=== PATIENT | female | born 1990 | race Caucasian/White ===

== ENCOUNTER 2019-08-11 19:11 | Observation (INO) | payer BC, SELFPAY ==
[2019-08-11] VITALS (21 sets, daily range): BP systolic 138–157; BP diastolic 80–102; PULSE 78–97; TEMP 36.6–36.8; O2SAT 97; BMI 26.4
--- NOTE | 2019-08-11 19:11 | OBADM ---
This patient, Carol Simons, admitted to the OB room Labor/Delivery/Recovery 104 for observation. Patient/family oriented to hospital policies and general routines including ID bracelet, bed and alarms, visiting hours, pain management, procedures, bathroom and other care routines, personal items, smoking policy, room service/diet, and visiting hours. Patient/Family are encouraged to report perceived risks to care and to ask questions if they do not understand what they are told or what they should do.
[2019-08-11] MEDS: LABETALOL HCL 100 MG TABLET PO (20:36)
[2019-08-11 20:45] LABS: Basophils Percent Auto 0.2 % (0.2-1.2); Eosinophils Percent Auto 0.5 % (0-4.4); Hematocrit 35.1 % (37.0-47.0); Hemoglobin 12.4 g/dL (12.0-15.0); Immature Granulocyte Absolute 0.02 K/mm3 (0.00-0.031); Immature Granulocyte Percent A 0.2 % (0-0.5); Immature Platelet Fraction Pct 4.7 % (0.9-11.2); Lymphocytes Absolute Auto 1.66 K/mm3 (0.9-3.2); Lymphocytes Percent Auto 19.2 % (18.3-44.2); Mean Corpuscular HGB Conc 35.3 g/dl (32-36); Mean Corpuscular Hemoglobin 31.8 pg (26-34); Monocytes Absolute Auto 0.5 K/mm3 (0.1-0.6); Monocytes Percent Auto 5.5 % (2.6-8.5); Neutrophils Absolute Auto 6.4 K/mm3 (1.3-6.7); Neutrophils Percent Auto 74.4 % (45.5-73.1); Platelet Count Result 119 k/mm3 (150-375); Red Cell Distribution Width 13.4 % (11.5-14.5); White Blood Count 8.7 K/mm3 (4.5-10.0)
[2019-08-11 20:56] LABS: Alanine Aminotransferase 28 U/L (4-35); Albumin Level 3.6 g/dL (3.5-5.1); Alkaline Phosphatase 87 U/L (38-126); Aspartate Amino Transferase 29 U/L (14-36); Bilirubin,Total 0.2 mg/dL (0.2-1.3); Blood Urea Nitrogen 11 mg/dL (7-17); Calcium 8.9 mg/dL (8.4-10.2); Carbon Dioxide 20 mmol/L (22-30); Chloride 106 mmol/L (98-107); Estimated Glomerular Filt Rate > 60; Glucose 83 mg/dL (65-105); Potassium 3.4 mmol/L (3.4-5.0); Sodium 135 mmol/L (137-145); Uric Acid 3.2 mg/dL (2.5-7.5)
[2019-08-11 21:12] LABS: Add Urine Microscopic? YES; Appearance Urine Clear (Clear); Bacteria Urine Trace /hpf; Bilirubin Urine Negative (Negative); Blood Urine Negative (Negative); Color Urine Colorless (Yellow); Glucose Urine UA Negative (Negative); Ketones Urine Trace mg/dL (Negative); Leukocyte Esterase Ur Negative LEU/UL (NEGATIVE); Nitrate Urine Negative (Negative); Protein Urine Negative (Negative); RBC Urine 0-2 /hpf (0-2); Specific Grav Ur 1.004 (1.001-1.035); Squamous Epithelial Cell Urine Rare /hpf (Few); Urobilinogen Urine Negative mg/dL (<2.0); WBC Urine 0-3 /hpf (0-3)
[2019-08-11 21:13] LABS: Creatinine Urine 10.4 mg/dL; Total Protein Urine Random 13 mg/dL
[2019-08-11] MEDS: NIFEdipine 30 MG TAB.ER.24 PO (22:23)
[2019-08-12] VITALS (19 sets, daily range): BP systolic 119–144; BP diastolic 66–95; PULSE 78–106; TEMP 36.6–37.1; O2SAT 99
--- NOTE | 2019-08-12 20:55 | PC.NURSE ---
Discharge medications reviewed with patient. Patient educated on changed labetalol schedule and dose. Patient states understanding. 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
[2019-08-12] MEDS: LABETALOL HCL 100 MG TABLET 200 MG PO (20:56)
--- NOTE | 2019-08-12 21:02 | PC.NURSE ---
Patient up to restroom for final void of 24 hour urine collection.
[2019-08-12 21:32] LABS: Collection Time Urine 24 HOURS
[2019-08-12 21:45] LABS: Creatinine Urine 35.2 mg/dL; Patient Weight 154 Lbs
[2019-08-12 21:49] LABS: Specific Gravity Ur 1.008
[2019-08-12 21:50] LABS: Creatinine Clearance Urine 213.3 ml/min (75-125); Total Volume 24 Hour Urine 4400 ml
--- NOTE | 2019-08-13 08:13 | PM.OBTRLD ---
OB - Triage/Final Diagnosis Visit Information Date of evaluation: 08/12/19 Comments/Additional reasons for admission: 28 y/o @ 37 weeks presented with leaking fluid. Rom plus and pelvic exam negative for amniotic fluid. Chtn with elevated blood pressure. Patient observed for 24 hour urine. Patient denies headache, vision changes, or increased swelling. Patient reports movermnt PMSH: chtn, x1 Medications: Labetalol 200 mg po x1 i Evaluation Laboratory results: Laboratory Tests 08/11/19 08/11/19 08/11/19 20:35 20:35 20:59 WBC 8.7 RBC 3.90 L Hgb 12.4 Hct 35.1 L MCV 90.0 MCH 31.8 MCHC 35.3 RDW 13.4 Plt Count 119 L MPV 11.0 H Immature Gran % (Auto) 0.2 Neut % (Auto) 74.4 H Lymph % (Auto) 19.2 [place] % (Auto) 5.5 Eos % (Auto) 0.5 Baso % (Auto) 0.2 Lymph # (Auto) 1.66 [place] # (Auto) 0.5 Eos # (Auto) 0.0 Baso # (Auto) 0.0 Abs Immat Gran (auto) 0.02 Absolute Neuts (auto) 6.4 Absolute Nucleated RBC 0.0 Nucleated RBC % 0.0 % Immature Plt Fraction 4.7 Sodium 135 L Potassium 3.4 Chloride 106 Carbon Dioxide 20 L BUN 11 Creatinine 0.50 L Estim Creat Clear Calc Not Reportable Estimated GFR > 60 Glucose 83 Uric Acid 3.2 Calcium 8.9 Total Bilirubin 0.2 AST 29 ALT 28 Alkaline Phosphatase 87 Total Protein 7.0 Albumin 3.6 Urine Color Colorless Urine Appearance Clear Urine pH 7.0 Ur Specific [place] 1.004 Urine Protein Negative Urine Glucose (UA) Negative Urine Ketones Trace Ur Blood (Man) Negative Urine Nitrate Negative Urine Bilirubin Negative Urine Urobilinogen Negative Ur Leukocyte Esterase Negative Urine RBC 0-2 Urine WBC 0-3 Ur Squamous Epith Cells Rare Urine Bacteria Trace U Random Total Protein Ur 24 Hour Volume Urine Creatinine Creatinine Clearance 08/11/19 08/11/19 20:59 21:21 WBC RBC Hgb Hct MCV MCH MCHC RDW Plt Count MPV Immature Gran % (Auto) Neut % (Auto) Lymph % (Auto) [place] % (Auto) Eos % (Auto) Baso % (Auto) Lymph # (Auto) [place] # (Auto) Eos # (Auto) Baso # (Auto) Abs Immat Gran (auto) Absolute Neuts (auto) Absolute Nucleated RBC Nucleated RBC % % Immature Plt Fraction Sodium Potassium Chloride Carbon Dioxide BUN Creatinine Estim Creat Clear Calc Estimated GFR Glucose Uric Acid Calcium Total Bilirubin AST ALT Alkaline Phosphatase Total Protein Albumin Urine Color Urine Appearance Urine pH Ur Specific [place] Urine Protein Urine Glucose (UA) Urine Ketones Ur Blood (Man) Urine Nitrate Urine Bilirubin Urine Urobilinogen Ur Leukocyte Esterase Urine RBC Urine WBC Ur Squamous Epith Cells Urine Bacteria U Random Total Protein 13 Ur 24 Hour Volume 4400 Urine Creatinine 10.4 35.2 Creatinine Clearance 213.3 H Vital signs: Vital Signs - 24 hr 08/12/19 09:03 08/12/19 10:46 08/12/19 12:46 Temperature Pulse Rate 106 H 83 84 Blood Pressure 144/95 H 121/69 128/83 Blood Pressure [Right Arm] 08/12/19 15:01 08/12/19 17:01 08/12/19 20:15 Temperature 36.6 C Pulse Rate 99 99 Blood Pressure 139/72 135/86 Blood Pressure [Right Arm] 08/12/19 20:16 08/12/19 20:55 08/12/19 20:56 Temperature 36.9 C Pulse Rate 98 93 95 Blood Pressure 138/85 135/81 Blood Pressure [Right Arm] 135/81 Final Diagnosis (1) Chronic hypertension affecting : Code(s): O10.919 - Unspecified pre-existing hypertension complicating , unspecified trimester Status: Acute Plan: Collect 24 hour urine and monitor BPS d/c after urine done,. Labetalol 200 mg po BID fetus reactive.
[2019-08-13 09:13] LABS: Total Protein Urine 24 Hr 308 mg/24hr (0-149); Total Protein Urine Random < 7.0 mg/dL (0.0-11.9)
== END 2019-08-12 21:23 | disposition home or self-care (01) ==
LOC: ANHLDR 21:48 → ANHOBPP 08-12 17:56 → ANHLDR 08-14 13:01 → ANHOBPP 08-14 13:01
PROVIDERS: Admitting Provider Obstetrics & Gynecology; PCP Internal Medicine; Visit Provider Obstetrics & Gynecology
DX: O10.913 Unspecified pre-existing hypertension complicating pregnancy, third trimester (principal); Z3A.37 37 weeks gestation of pregnancy
CPT/HCPCS: 36415; 59025; 80053; 81001; 81050; 82570; 82575; 84156; 84550; 85025; 85055; 87086; A9270; G0378; G0379

== ENCOUNTER 2019-08-13 16:21 | Inpatient (IN) | payer BC, SELFPAY ==
[2019-08-12 12:30] VITALS: BMI 26.9
[2019-08-13] VITALS (78 sets, daily range): BP systolic 91–153; BP diastolic 51–118; PULSE 74–138; TEMP 36.2–37.4; O2SAT 97–100
--- NOTE | 2019-08-13 16:48 | P.PNAN_ITS ---
Anes - Initial Pre Proc Eval Procedure: labor epidural Date/Time: 08/13/19 16:48 Surgeon: Deneen cOhoa MD Pre Op Diagnosis: labor pain Pre Op Diagnosis: Induction of Labor Patient Data Age: 28 Gender: F Height: Weight: Allergies Allergy/AdvReac Type Severity Reaction Status Date / Time No Known Allergies Allergy Unverified 03/03/17 15:43 Home Medications Medication Instructions Recorded Confirmed Type Zatean-Pn DHA 1 cap PO DAILY 08/10/19 08/11/19 History aspirin 81 mg PO DAILY 08/10/19 08/11/19 History ergocalciferol (vitamin D2) 1,250 mcg PO WEEKLY 08/10/19 08/11/19 History [Vitamin D2] labetalol 200 mg PO Q12HR #28 tablet 08/12/19 Rx Patient hx anesthesia problems: none Family hx anesthesia problems: none [facility] Past Medical History Medical History Chronic hypertension affecting Family History Family History Other No pertinent family history Social History Social History Substance use: never Gender identity (if verbalized by the patient): Female Spiritual care concerns: No Anes - Eval Final PreProcedure Day of Procedure 08/13/19 16:48 Patient weight: normal Heart: regular rate and rhythm Lungs: clear to auscultation and normal air movement Airway: Mallampati scale class 1 Neurological: alert and oriented ASA classification: III Anesthetic plan: proceed Anesthesia type and monitoring: regional epidural and standard monitoring Informed Consent: The patient's anesthetic plan and its attendant risks and benefits were discussed with the patient/family/POA. Questions were solicited and answers provided to the satisfaction of the patient/family/POA.
[2019-08-13 17:24] LABS: Basophils Percent Auto 0.1 % (0.2-1.2); Eosinophils Percent Auto 0.4 % (0-4.4); Hematocrit 35.4 % (37.0-47.0); Hemoglobin 12.5 g/dL (12.0-15.0); Immature Granulocyte Absolute 0.04 K/mm3 (0.00-0.031); Immature Granulocyte Percent A 0.5 % (0-0.5); Immature Platelet Fraction Pct 4.8 % (0.9-11.2); Lymphocytes Absolute Auto 1.51 K/mm3 (0.9-3.2); Lymphocytes Percent Auto 17.9 % (18.3-44.2); Mean Corpuscular HGB Conc 35.3 g/dl (32-36); Mean Corpuscular Hemoglobin 31.8 pg (26-34); Mean Corpuscular Volume 90.1 fl (80-100); Mean Platelet Volume 11.1 fl (7.4-10.4); Monocytes Absolute Auto 0.5 K/mm3 (0.1-0.6); Monocytes Percent Auto 6.3 % (2.6-8.5); Neutrophils Absolute Auto 6.3 K/mm3 (1.3-6.7); Neutrophils Percent Auto 74.8 % (45.5-73.1); Platelet Count Result 127 k/mm3 (150-375); Red Blood Count 3.93 M/mm3 (4.2-5.4); Red Cell Distribution Width 13.4 % (11.5-14.5); White Blood Count 8.4 K/mm3 (4.5-10.0)
--- NOTE | 2019-08-13 17:34 | WPDOBADMIT ---
Obstetrics - Admit Note Admission Note: record reviewed. No pertinent additions to the history and/or any subsequent changes in the physical findings that are not consistent with the expected course of the were found. Additions to the history and/or subsequent changes in the physical findings follow. Here at 37 3/7 wks with CHTN and now superimposed preeclampsia for MIL. Cervix 3-4/50/-2 AROM with clear fluid. FHTs reactive.
[2019-08-13] MEDS: LACTATED RINGERS 1,000 ML 125 ML IV CONT ×2 (17:41→19:00)
[2019-08-13] MEDS: OXYTOCIN 30 UNITS/NS 500 ML 30 UNITS/500 ML BAG IV CONT (17:42)
--- NOTE | 2019-08-13 20:51 | PM.OBPRVD ---
OB - Delivery Note Procedure Delivery date: 08/13/19 Procedure: events: Pre-Eclampsia Intrapartal events: None Induction method: AROM and per pitocin protocol Delivery monitor: external FHT and external uterine Route of delivery: Laceration description: Perineal - 1st Degree Specimen: Yes (placenta) Estimated blood loss (mL): 100 Anesthesia type: Epidural Disposition: floor Baby Weeks of gestation at delivery: 37 gender: Male Weight (pounds): 6 Weight (ounces): 9 presentation: vertex Placenta delivery description: Spontaneous cord vessel description: 3 Vessels score one minute: 9 score five minutes: 9
--- NOTE | 2019-08-13 20:53 | PM.OBDSVD ---
DS: Admitting Diagnosis Admitting Diagnosis Admitting Diagnosis: IUP 37 2/7 wks; CHTN with superimposed preeclampsia OB - DS: Summary OB Procedures : NST and Ultrasound OB Procedures Intrapartum: Spontaneous Vag Delivery OB Procedures: : None Peripartum Data Delivery Method: Natural Vaginal Laceration description: Perineal - 1st Degree complications: none Status at Discharge Functional status at discharge: independent ambulation Overall status at discharge: patient is progressing back to baseline Time Spent with Patient Time attestation: Total time spent providing and/or coordinating discharge services: DS: Data Data Completed and Pending Labs on day of discharge: Labs from last 24 hours 08/13/19 08/13/19 08/13/19 17:07 17:07 17:07 WBC 8.4 RBC 3.93 L Hgb 12.5 Hct 35.4 L MCV 90.1 MCH 31.8 MCHC 35.3 RDW 13.4 Plt Count 127 L MPV 11.1 H Immature Gran % (Auto) 0.5 Neut % (Auto) 74.8 H Lymph % (Auto) 17.9 L [place] % (Auto) 6.3 Eos % (Auto) 0.4 Baso % (Auto) 0.1 L Lymph # (Auto) 1.51 [place] # (Auto) 0.5 Eos # (Auto) 0.0 Baso # (Auto) 0.0 Abs Immat Gran (auto) 0.04 H Absolute Neuts (auto) 6.3 Absolute Nucleated RBC 0.0 Nucleated RBC % 0.0 % Immature Plt Fraction 4.8 RPR Pending Blood Type A Positive Antibody Screen Negative Discharge Plan Discharge Attending physician on discharge: Deneen Ochoa Discharging Clinician: Deneen Ochoa Anticipated Discharge Date/Time: 08/15/19 20:54 Patient Disposition: Home, Self-Care Activity: pelvic rest Diet: regular Discharge Instructions: Education: Mom and Baby Guide Given to: Mother Follow-Up: Call your delivering provider's office for an appointment to be seen in: 1 Week Mom [facility] follow-up appointment. Appointment Date/Time: August 17, 2019 at 11:00 am What to expect at your follow-up visit: Blood Pressure Check, Physical Assessment Call [phone] if you are unable to keep your appointment time. BREAST CARE: 1. Wear a snug supportive bra. 2. For engorgement discomfort: Bottle Feeding: A. May apply ice packs EPISIOTOMY/PERINEAL CARE: 1. Until bleeding stops, use your ok bottle after urinating 2. Change your pad frequently throughout the day 3. You may take sitz baths several times a day (fill your bathtub with warm water and soak for 20 minutes.) Do NOT bathe in the water 4. No tub baths until seen by your physician - You may shower ACTIVITY: 1. Rest as much as possible. 2. Do not exercise or lift anything heavier than your baby (such as laundry or other children.) 3. Avoid stairs or driving as much as possible. 4. Do not put anything into the vagina. No douching, tampons, or sexual activity until seen by physician. NOTIFY PHYSICIAN IF YOU HAVE ANY QUESTIONS OR IF ANY OF THE FOLLOWING SYMPTOMS OCCUR: 1. If your perineum becomes red, swollen, or more painful than what you have experienced in the hospital. 2. If your vaginal bleeding becomes foul smelling. 3. If your vaginal bleeding becomes more heavy than a period or if your bleeding changes from pink to bright red. However, you may pass an occasional walnut-sized clot once or twice for the first week . 4. If you experience a sharp, shooting pain in you calves. 5. If you discover a hard, reddened area on your breast or if you experience flu-like symptoms. DIET: 1. Eat regular, well-balanced meals. 2. Drink plenty of fluids daily. If , drink to thirst. Stand Alone Forms: General Discharge Information Follow-up/Referrals: Deneen Ochoa MD [Physician] - 1 Week Discharge Medications: Continued Von-Pn DHA 27 mg iron-1 mg -300 mg Capsule 1 cap PO DAILY RF: 0 ergocalciferol (vitamin D2) [Vitamin D2] 1,250 mcg (50,000 uni
[2019-08-13] MEDS: OXYTOCIN 30 UNITS/NS 500 ML 30 UNITS/500 ML BAG 125 UNITS IV CONT (21:29)
[2019-08-13] MEDS: LABETALOL HCL 100 MG TABLET 200 MG PO (21:31)
[2019-08-13] MEDS: BENZOCAINE 20% AER SPR (*SP) 56 GM CAN 1 SPRAY TOPICAL (23:18)
[2019-08-13] MEDS: WITCH HAZEL 40 PADS 1 PAD TOPICAL (23:18)
[2019-08-13] MEDS: IBUPROFEN 600 MG TABLET PO (23:32)
[2019-08-14 00:30] VITALS: BP 127/77; PULSE 84; RESP 18; TEMP 36.4; O2SAT 99
[2019-08-14] MEDS: ACETAMINOPHEN 325 MG TABLET 650 MG PO (04:39)
[2019-08-14 05:42] LABS: Hematocrit 36.5 % (37.0-47.0); Hemoglobin 12.9 g/dL (12.0-15.0)
--- NOTE | 2019-08-14 07:43 | PM.OBPNVD ---
OB - PN: Subj Subjective Date/time seen: 08/14/19 07:43 Patient comments: no complaints and other (No PIH sx) baby status: doing well OB - PN: Obj Data Labs CBC & Chem 7: 08/14/19 04:49 Labs: Laboratory Results - last 24 hr 08/13/19 08/13/19 08/14/19 17:07 17:07 04:49 WBC 8.4 RBC 3.93 L Hgb 12.5 12.9 Hct 35.4 L 36.5 L MCV 90.1 MCH 31.8 MCHC 35.3 RDW 13.4 Plt Count 127 L MPV 11.1 H Immature Gran % (Auto) 0.5 Neut % (Auto) 74.8 H Lymph % (Auto) 17.9 L [place] % (Auto) 6.3 Eos % (Auto) 0.4 Baso % (Auto) 0.1 L Lymph # (Auto) 1.51 [place] # (Auto) 0.5 Eos # (Auto) 0.0 Baso # (Auto) 0.0 Abs Immat Gran (auto) 0.04 H Absolute Neuts (auto) 6.3 Absolute Nucleated RBC 0.0 Nucleated RBC % 0.0 % Immature Plt Fraction 4.8 Blood Type A Positive Antibody Screen Negative OB - PN A/P Assessment and Plan (1) Chronic hypertension affecting : Code(s): O10.919 - Unspecified pre-existing hypertension complicating , unspecified trimester Status: Acute Assessment and Plan: continue Labetalol (2) Preeclampsia: Code(s): O14.90 - Unspecified pre-eclampsia, unspecified trimester Status: Acute Assessment and Plan: no symptoms; bp stable; no diuresis yet Time Spent With Patient Time: Total time spent is greater than 50% in coordination of care (as documented) at patient's floor/unit and/or counseling patient: Exam : Bimanual exam- vagina & uterus: other (Uterus firm, nt @U)
--- NOTE | 2019-08-14 07:54 | WPDANLDPN2 ---
Anes-Prog Note L&D Date/Time: 08/14/19 07:54 Comfortable throughout: labor and delivery Neuraxial method: epidural Epidural/Spinal procedure site: clean & non-tender Neuro status: Neuro function grossly intact. Cardiovascular status: normal Respiratory status: normal Airway patency: baseline Mental status: baseline Post-Op hydration status: normal Vital Signs: Last Vital Signs Temp 36.4 C 08/14/19 00:30 Pulse 84 08/14/19 00:30 Resp 18 08/14/19 00:30 BP 127/77 08/14/19 00:30 Pulse Ox 99 08/14/19 00:30 I/O: Intake & Output 08/13/19 08/13/19 08/14/19 15:59 23:59 07:59 Intake Total 1800 Output Total 273 Balance 1527 Post-procedural complaints: none Patient feedback: Patient satisfied with anesthetic care.
[2019-08-14 08:30] VITALS: BP 131/84; PULSE 76; RESP 18; TEMP 37.1; O2SAT 99
[2019-08-14] MEDS: DOCUSATE SODIUM 100 MG CAPSULE PO ×2 (08:30→15:42)
[2019-08-14 08:31] VITALS: PULSE 76
[2019-08-14] MEDS: LABETALOL HCL 100 MG TABLET 200 MG PO (08:31)
[2019-08-14] MEDS: IBUPROFEN 600 MG TABLET PO ×3 (08:31→21:00)
[2019-08-14 09:47] LABS: Rapid Plasma Reagin Non-Reactive (NonReactive)
[2019-08-14 11:30] VITALS: BP 137/89; PULSE 78; RESP 18; TEMP 36.9; O2SAT 94
[2019-08-14 15:30] VITALS: BP 135/91; PULSE 85; O2SAT 100
[2019-08-15 00:15] VITALS: BP 124/69; PULSE 72; TEMP 37
[2019-08-15 01:51] VITALS: BP 135/87; PULSE 75; PULSE 85; RESP 14; RESP 18; TEMP 36.8; O2SAT 100; O2SAT 99
[2019-08-15 02:04] VITALS: PULSE 74
[2019-08-15] MEDS: LABETALOL HCL 100 MG TABLET 200 MG PO ×2 (02:04→08:33)
[2019-08-15 04:45] VITALS: BP 132/84; PULSE 79
[2019-08-15 08:30] VITALS: BP 148/99; PULSE 88; RESP 16; TEMP 36.7; O2SAT 100
[2019-08-15] MEDS: IBUPROFEN 600 MG TABLET PO (08:33)
--- NOTE | 2019-08-15 08:35 | PC.NURSE ---
Patient instructed on viewing the discharge video Mother & Baby Care, The First Two Weeks . Patient was given the opportunity and encouraged to ask questions. Patient verbalized understanding of information shared and has been given the mother/baby guide for home reference.
--- NOTE | 2019-08-15 10:05 | PM.OBPNVD ---
OB - PN: Subj Subjective Date/time seen: 08/15/19 10:05 desires home and no complaints OB - PN: Obj Data Labs CBC & Chem 7: 08/14/19 04:49 OB - PN A/P Assessment and Plan (1) (normal spontaneous vaginal delivery): Code(s): O80 - Encounter for full-term uncomplicated delivery Status: Acute Assessment and Plan: continue with pp care. desires home plan bp check in 24 hours. Time Spent With Patient Time: Total time spent is greater than 50% in coordination of care (as documented) at patient's floor/unit and/or counseling patient:
[2019-08-17 11:03] VITALS: BP 160/114; PULSE 81; RESP 16; TEMP 36.6; O2SAT 100
== END 2019-08-15 11:55 | disposition home or self-care (01) | DRG 807 ==
LOC: ANHLDR 08-16 12:51 → ANHOB2 08-16 12:51
PROVIDERS: Admitting Provider Obstetrics & Gynecology Gynecology; PCP Internal Medicine; Visit Provider Obstetrics & Gynecology
DX: O11.4 Pre-existing hypertension with pre-eclampsia, complicating childbirth (principal); Z37.0 Single live birth; Z3A.37 37 weeks gestation of pregnancy; O70.0 First degree perineal laceration during delivery; O62.3 Precipitate labor
CPT/HCPCS: 36415; 85014; 85018; 85025; 85055; 86592; 86850; 86900; 86901; 88307; A9270; J2590; J2795; J7120

== ENCOUNTER 2019-08-17 11:56 | Outpatient (CLI) | payer BC, SELFPAY ==
[2019-08-17] VITALS (8 sets, daily range): BP systolic 144–166; BP diastolic 91–103; PULSE 66–76; RESP 16; TEMP 37.3
--- NOTE | 2019-08-17 12:15 | OBADM ---
This patient, Carol Simons, admitted to the OB room 115 at 1156 as clinical outpatient for hypertension. Patient/family oriented to hospital policies and general routines including ID bracelet, bed and alarms, visiting hours, pain management, procedures, bathroom and other care routines, personal items, smoking policy, room service/diet, and visiting hours. Patient/Family are encouraged to report perceived risks to care and to ask questions if they do not understand what they are told or what they should do.
--- NOTE | 2019-08-17 12:18 | PC.NURSE ---
Pt stating that her BP's have been normal at home and it's just up because she was so worried about having her BP checked that we are getting higher readings. States she has been that way since she was young. Informed pt I would get her labs sent MAISHA and it would take an hour for them to come back. Encouraged her to try to distract herself and not worsen her anxiety. Given menu to order lunch. FOB taking care of in room.
[2019-08-17 12:45] LABS: Basophils Percent Auto 0.3 % (0.2-1.2); Eosinophils Absolute Auto 0.3 K/mm3 (0-0.3); Eosinophils Percent Auto 2.5 % (0-4.4); Hematocrit 38.8 % (37.0-47.0); Hemoglobin 13.7 g/dL (12.0-15.0); Immature Granulocyte Absolute 0.06 K/mm3 (0.00-0.031); Immature Granulocyte Percent A 0.6 % (0-0.5); Immature Platelet Fraction Pct 4.3 % (0.9-11.2); Lymphocytes Absolute Auto 1.26 K/mm3 (0.9-3.2); Lymphocytes Percent Auto 12.8 % (18.3-44.2); Mean Corpuscular HGB Conc 35.3 g/dl (32-36); Mean Corpuscular Hemoglobin 31.7 pg (26-34); Mean Corpuscular Volume 89.8 fl (80-100); Mean Platelet Volume 11.2 fl (7.4-10.4); Monocytes Absolute Auto 0.6 K/mm3 (0.1-0.6); Monocytes Percent Auto 5.9 % (2.6-8.5); Neutrophils Absolute Auto 7.7 K/mm3 (1.3-6.7); Neutrophils Percent Auto 77.9 % (45.5-73.1); Platelet Count Result 152 k/mm3 (150-375); Red Blood Count 4.32 M/mm3 (4.2-5.4); White Blood Count 9.9 K/mm3 (4.5-10.0)
[2019-08-17 12:57] LABS: Alanine Aminotransferase 50 U/L (4-35); Albumin Level 3.8 g/dL (3.5-5.1); Alkaline Phosphatase 89 U/L (38-126); Aspartate Amino Transferase 45 U/L (14-36); Bilirubin,Total 0.3 mg/dL (0.2-1.3); Blood Urea Nitrogen 12 mg/dL (7-17); Calcium 8.9 mg/dL (8.4-10.2); Carbon Dioxide 24 mmol/L (22-30); Chloride 104 mmol/L (98-107); Estimated Glomerular Filt Rate > 60; Glucose 88 mg/dL (65-105); Potassium 3.7 mmol/L (3.4-5.0); Sodium 134 mmol/L (137-145); Uric Acid 3.6 mg/dL (2.5-7.5)
--- NOTE | 2019-08-17 13:04 | PC.NURSE ---
Dr. Ochoa returned page and informed of BP's and lab results. Pt denies headache, no visual disturbance, no epigstric/RUQ pain, no edema, and DTR's are 2-3+ and no clonus. Informed MD platelet count on admission to L&D was 127 and todays is 152. Order received to give an extra dose of Labetalol now and continue to monitor BP's for another hour and call back with update.
[2019-08-17] MEDS: LABETALOL HCL 100 MG TABLET PO (13:16)
--- NOTE | 2019-08-17 13:17 | PC.NURSE ---
Brought extra dose of Labetalol to room and to discuss plan for care. Pt states she will take the Labetalol, but doesn't want to stick around for another hour having my BP checked; it's only going to make it worse . Pt requesting to speak with Dr. Ochoa. paged.
--- NOTE | 2019-08-17 13:19 | PC.NURSE ---
Dr. Ochoa returned page and informed of pt's unhappiness at staying another hour. Phone taken to room and placed on speakerphone for pt to speak with MD. explained to pt that with the BP's taken by the follow-up nurse, her DBP still 95 and greater, and her liver enzymes being slightly elevated that her change in condition warranted further evaluation. Discussed the risk of a stroke or seizures if her BP remained elevated. Pt kept repeating that she was only getting more anxious with just the thought of staying here and having her BP rechecked. offered pt something for her anxiety to help her, but not willing to discharge her at this time.
--- NOTE | 2019-08-17 13:25 | PC.NURSE ---
After getting off the phone, pt started questioning if she could just leave. Pt informed we couldn't make her stay, but that it was in her best interest if she would stay and let us make sure her BP was coming down. MD had OK'd pt's BP not being checked again until an hour after the dose of Labetalol. Quentin her informed her he wouldn't take her home, so she just needed to try to calm down.
[2019-08-17] MEDS: hydrOXYzine HCL 25 MG TABLET PO (13:35)
--- NOTE | 2019-08-17 14:23 | PC.NURSE ---
Dr. Ochoa returned page and informed pt's BP at the 1 hour bo was 161/98. Set the monitor to repeat her BP 2.5 mins later with me out of the room and repeat BP with me out of the room was 144/91. Orders for discharge and monitoring of BP at home obtained.
== END 2019-08-17 14:44 | disposition home or self-care (01) ==
LOC: ANHOBOP 12:03 → ANHOBPP 12:22
PROVIDERS: PCP Internal Medicine; Visit Provider Obstetrics & Gynecology Gynecology
DX: O16.5 Unspecified maternal hypertension, complicating the puerperium (principal)
CPT/HCPCS: 36415; 80053; 84550; 85025; 85055; 99199; A9270